=== PATIENT | male | born 1980 | race Caucasian/White ===

== ENCOUNTER 2016-11-26 19:35 | Emergency (ER) | payer MEDICARE, OTHER | END 2016-11-27 03:30 | disposition home or self-care (01) | LOC: ER 19:35 | DX: J18.9 Pneumonia, unspecified organism (principal); R60.0 Localized edema; R14.0 Abdominal distension (gaseous); R10.9 Unspecified abdominal pain; B19.20 Unspecified viral hepatitis C without hepatic coma; K74.60 Unspecified cirrhosis of liver; F11.10 Opioid abuse, uncomplicated; S91.302A Unspecified open wound, left foot, initial encounter; S91.301A Unspecified open wound, right foot, initial encounter; F17.210 Nicotine dependence, cigarettes, uncomplicated; Z79.899 Other long term (current) drug therapy; Z88.1 Allergy status to other antibiotic agents; Z88.6 Allergy status to analgesic agent ==

== ENCOUNTER 2017-01-02 16:32 | Emergency (ER) | payer MEDICARE, OTHER ==
[2017-01-02 17:39] LABS: BASO % 0.4 % (0.2-1.2); EOS % 0.4 % (0.8-7.0); GRAN # 6.4 10_X3_uL (1.8-5.4); GRAN % 74.8 % (34.0-67.9); HEMOGLOBIN 11.1 g/dL (13.7-17.5); LYMPH # 1.4 10_X3_uL (1.3-3.6); LYMPH % 15.8 % (21.8-53.1); MEAN CORPUSCULAR HEMOGLOBIN 31.5 pg (27.0-33.0); MEAN CORPUSCULAR HGB CONC 34.7 g/dL (32.0-36.0); MEAN CORPUSCULAR VOLUME 90.9 fL (79-92); MEAN PLATELET VOLUME 9.8 fl (7.5-11.5); MONO # 0.7 10_X3_uL (0.3-0.8); MONO % 8.6 % (5.3-12.2); PLATELET COUNT 314 x10_3/uL (163-337); RED BLOOD COUNT 3.52 x10_6/uL (4.6-6.1); RED CELL DISTRIBUTION WIDTH 16.2 % (11.6-14.4); WHITE BLOOD COUNT 8.5 x10_3/uL (4.2-9.1)
[2017-01-02 17:52] LABS: ALBUMIN 1.7 gm/dL (3.4-5.0); ALKALINE PHOSPHATASE 98 U/L (50-136); ALT/SGPT 35 U/L (7.53-40.17); AST/SGOT 41 U/L (6.66-35.34); BILIRUBIN,TOTAL 0.41 mg/dL (0.0-1.0); CARBON DIOXIDE 22 mmol/L (21-32); CREATININE 0.5 mg/dL (0.6-1.3); GLUCOSE,RANDOM 83 mg/dL (70-99); POTASSIUM 3.1 mmol/L (3.5-5.1); SODIUM 131 mmol/L (136-145); TOTAL PROTEIN 6.1 gm/dL (6.4-8.2)
[2017-01-02 17:53] LABS: BLOOD UREA NITROGEN 6 mg/dL (7-18)
== END 2017-01-02 18:55 | disposition home or self-care (01) ==
LOC: ER 16:32
PROVIDERS: Emergency Medicine
DX: K74.60 Unspecified cirrhosis of liver (principal); E87.6 Hypokalemia; S50.12XA Contusion of left forearm, initial encounter; S50.812A Abrasion of left forearm, initial encounter; W10.9XXA Fall (on) (from) unspecified stairs and steps, initial encounter; Y92.009 Unspecified place in unspecified non-institutional (private) residence as the place of occurrence of the external cause; F41.0 Panic disorder [episodic paroxysmal anxiety]; Z86.19 Personal history of other infectious and parasitic diseases; F17.210 Nicotine dependence, cigarettes, uncomplicated; Z79.899 Other long term (current) drug therapy; Z88.1 Allergy status to other antibiotic agents; Z88.6 Allergy status to analgesic agent
CPT/HCPCS: 36415; 80053; 83605; 85025; 96372; 99070; 99283; 99283-25

== ENCOUNTER 2017-01-23 09:46 | Emergency (ER) | payer MEDICARE, OTHER | END 2017-01-23 10:35 | disposition home or self-care (01) | LOC: ER 09:46 | DX: M54.5 Low back pain (principal); R10.9 Unspecified abdominal pain; K72.90 Hepatic failure, unspecified without coma; K74.60 Unspecified cirrhosis of liver; F17.210 Nicotine dependence, cigarettes, uncomplicated; Z79.899 Other long term (current) drug therapy; Z79.891 Long term (current) use of opiate analgesic; Z88.6 Allergy status to analgesic agent; Z88.8 Allergy status to other drugs, medicaments and biological substances | CPT/HCPCS: 96372; 99283; 99283-25 ==

== ENCOUNTER 2017-01-28 15:41 | Emergency (ER) | payer MEDICARE, OTHER | END 2017-01-28 20:44 | disposition home or self-care (01) | LOC: ER 15:41 | DX: K72.90 Hepatic failure, unspecified without coma (principal); R18.8 Other ascites; R10.9 Unspecified abdominal pain; R52 Pain, unspecified; Z86.19 Personal history of other infectious and parasitic diseases; F17.210 Nicotine dependence, cigarettes, uncomplicated; Z88.6 Allergy status to analgesic agent; Z88.8 Allergy status to other drugs, medicaments and biological substances | CPT/HCPCS: 96372; 99283; 99283-25 ==